=== PATIENT | female | born 2000 | race Caucasian/White ===

== ENCOUNTER 2022-02-26 07:35 | Emergency (ER) | payer BC ==
[~2022-02-26] VITALS: Ht 165.1 cm; Wt 41.7 kg
[2022-02-26 07:39] VITALS: BP 131/82
--- NOTE | 2022-02-26 07:44 | NUR ---
PT AMBULATES TO ROOM 9
[2022-02-26] MEDS ORDERED: ACETAMINOPHEN EXTRA STRENGTH 500 MG TAB PO ONE (07:55)
--- NOTE | 2022-02-26 07:59 | NUR ---
Patient stated she had contact with sister two days ago and started feeling sick. Patient states bilateral ear ache and generalized body aches. Temp upon assessment 100.2 degrees F. ER physician verbally informed, ER physician verbalzied understanding.
[2022-02-26] MEDS ORDERED: NACL 0.9% 1,000 ML IV ONE (08:30)
[2022-02-26] MEDS ORDERED: KETOROLAC 15 MG/ML VIAL IM ONE (09:15)
[2022-02-26] MEDS ORDERED: IBUP-1842 PO (10:44)
[2022-02-26] MEDS ORDERED: BENZ150C2 PO (11:30)
[2022-02-26 12:05] VITALS: BP 122/74
[2022-02-28] MEDS ORDERED: PRED20TA5 PO (17:54)
== END 2022-02-26 12:05 | disposition home or self-care (01) ==
LOC: MED 07:35
DX: J06.9 Acute upper respiratory infection, unspecified (principal); Z20.822 Contact with and (suspected) exposure to COVID-19
CPT/HCPCS: 87426; 87804; 96372; 99283; J1885